=== PATIENT | female | born 2000 | race Two or more races ===

== ENCOUNTER 2023-10-07 18:45 | Emergency (ER) | payer OTHER ==
[~2023-10-07] VITALS: Ht 165.1 cm; Wt 68.9 kg
[2023-10-07 21:00] VITALS: BP 128/76; TEMP 98.8; O2SAT 99
[2023-10-07] MEDS ORDERED: LIDOCAINE HCL/MPF 1% 30 ML VIAL IJ ONE (21:08)
== END 2023-10-07 22:00 | disposition home or self-care (01) ==
LOC: ER 18:56
DX: S51.812A Laceration without foreign body of left forearm, initial encounter (principal); W26.0XXA Contact with knife, initial encounter; Y93.89 Activity, other specified; Y92.89 Other specified places as the place of occurrence of the external cause; Y99.8 Other external cause status
CPT/HCPCS: 99282; 12002; J3490